=== PATIENT | female | born 1965 | race Caucasian/White ===

== ENCOUNTER 2024-02-19 20:44 | Emergency (ER) | payer BC, OTHER ==
[2024-02-19] MEDS ORDERED: PHENAZOPYRIDINE HCL 100 MG TABLET (FP) ONE (21:24)
[2024-02-19] MEDS: PHENAZOPYRIDINE HCL 100 MG TABLET (FP) PO ONE (21:25)
[2024-02-19] MEDS ORDERED: NITROFURANTOIN MONOHYD/M-CRYST 100 MG CAPSULE PO ONE (21:25)
[2024-02-19] MEDS: NITROFURANTOIN MACROCRYSTAL 50 MG CAPSULE (FP) PO SCH (21:25)
[2024-02-19 21:28] LABS: EPITHELIAL CELLS 0-5 /hpf
[2024-02-19 21:31] VITALS: BP 134/94; PULSE 93; RESP 16; TEMP 98.4; BMI 20.7
== END 2024-02-19 21:28 | disposition home or self-care (01) ==
LOC: FER 20:44
DX: N30.01 Acute cystitis with hematuria (principal); R30.0 Dysuria; R35.0 Frequency of micturition
CPT/HCPCS: 81003; 81015; 87086; 87186; 99283-25

== ENCOUNTER 2024-06-26 21:11 | Emergency (ER) | payer BC, OTHER ==
[2024-06-26 21:23] VITALS: BP 150/105; PULSE 87; RESP 16; TEMP 98.1; BMI 20.9
[2024-06-26] MEDS ORDERED: KETOROLAC TROMETHAMINE 30 MG/1 ML VIAL ONE (21:48)
[2024-06-26] MEDS: KETOROLAC TROMETHAMINE 30 MG/1 ML VIAL IM ONE (21:51)
== END 2024-06-26 22:59 | disposition home or self-care (01) ==
LOC: FER 21:11
PROC: 3E0233Z Introduction of Anti-inflammatory into Muscle, Percutaneous Approach (ICD-10-PCS; principal; 2024-06-26)
DX: S93.402A Sprain of unspecified ligament of left ankle, initial encounter (principal); M25.561 Pain in right knee; X50.1XXA Overexertion from prolonged static or awkward postures, initial encounter
CPT/HCPCS: 73562-TC-RT-FY; 73610-TC-LT-FY; 99284-25